=== PATIENT | female | born 1985 | race Two or more races ===

== ENCOUNTER 2017-08-25 10:05 | Observation (INO) | payer MEDICAID | END 2017-08-25 12:10 | disposition home or self-care (01) | DRG 566 | LOC: LDRP 10:05 | PROVIDERS: ADMIT Specialist; ATTEND Specialist | DX: O48.0 Post-term pregnancy (principal); Z3A.40 40 weeks gestation of pregnancy | CPT/HCPCS: 59025; 76818; 81002; G0378 ==

== ENCOUNTER 2017-08-27 10:06 | Observation (INO) | payer MEDICAID ==
[~2017-08-27] VITALS: Ht 154.9 cm; Wt 83.9 kg
[2017-08-27] MEDS ORDERED: PREN-96 PO (10:32)
== END 2017-08-27 11:30 | disposition home or self-care (01) | DRG 566 ==
LOC: LDRP 10:06
PROVIDERS: ADMIT Specialist; ATTEND Specialist
DX: O26.893 Other specified pregnancy related conditions, third trimester (principal); O48.0 Post-term pregnancy; R10.9 Unspecified abdominal pain; Z3A.40 40 weeks gestation of pregnancy
CPT/HCPCS: 59025; 76818; 81002; G0378

== ENCOUNTER 2017-08-29 20:20 | Inpatient (IN) | payer MEDICAID ==
[~2017-08-29 20:20] MED LIST: PREN-96 PO
[2017-08-29] MEDS: LACTATED RINGER'S 1,000 ML IV SCH (21:36)
[2017-08-29] MEDS ORDERED: PHISODERM TOP SOLN 240ML BTL TOP PRN (21:45)
[2017-08-29] MEDS ORDERED: DERMOPLAST 60ML BOTTLE TOP PRN (21:45)
[2017-08-29] MEDS ORDERED: METHYLERGONOVINE MALEATE 0.2 MG/ML AMP IM PRN (21:45)
[2017-08-29] MEDS ORDERED: LIDOCAINE 2% (LOCAL ANESTH.) PF 5ml SDV ID ONE (21:45)
[2017-08-29] MEDS ORDERED: WITCH HAZEL-GLYCERIN PAD TOP PRN (21:45)
[2017-08-29 22:06] LABS: Urine Bacteria NONE SEEN /hpf (None Seen); Urine Blood Negative /uL (Negative); Urine Mucus FEW (None Seen); Urine Specific Gravity 1.017 (1.001-1.035); Urine WBC 1 /hpf (0 - 5)
[2017-08-29 22:35] LABS: Basophils # (auto) 0 uL; Basophils % (auto) 0.4 % (0.0-2.0); Eosinophils # (auto) 0.1 uL; Eosinophils % (auto) 0.7 % (0.0-7.0); Hematocrit 35.6 % (36.0-46.0); Hemoglobin 11.7 g/dL (12.2-16.2); Lymphocytes # (auto) 1.6 uL; Lymphocytes % (auto) 20.7 % (10.0-50.0); Mean Corpuscular Hemoglobin 28.7 pg (28.0-32.0); Mean Corpuscular Hgb Conc. 32.9 g/dL (32.0-36.0); Mean Corpuscular Volume 87.2 fL (80.0-100.0); Monocytes # (auto) 0.8 uL; Monocytes % (auto) 9.8 % (0.0-12.0); Neutrophils # (auto) 5.4 uL; Neutrophils % (auto) 68.4 % (37.0-80.0); Platelet Count (auto) 220 10^3/uL (140-450); Red Blood Cells 4.09 10^6/uL (4.0-5.20); White Blood Cell 7.8 10^3/uL (4.4-10.8)
[2017-08-29 22:51] LABS: Albumin 2.5 g/dL (3.4-5.0); Calcium 8.9 mg/dL (8.5-10.1); Potassium 4.1 mmol/L (3.5-5.1)
[2017-08-29 22:53] LABS: BUN/Creatinine Ratio 17.4
[2017-08-29 22:56] LABS: Bilirubin, Total 0.1 mg/dL (0.2-1.0); Total Protein 6.6 g/dL (6.4-8.2)
[2017-08-29 23:21] LABS: INR 0.87 (0.9-1.15); Partial Thromboplastin Time 27.3 sec (23.78-33.04); Prothrombin Time 9.4 sec (9.27-12.13)
[2017-08-30] MEDS ORDERED: LACT. RINGERS/OXYTOCIN 20UNITS 1,000 ML IV SCH (09:01)
[2017-08-30] MEDS ORDERED: LACT. RINGERS/OXYTOCIN 20UNITS 1,000 ML IV ONE (09:03)
[2017-08-30] MEDS ORDERED: TERBUTALINE SULFATE 1 MG/ML 1ML VIAL SC ONE (09:15)
[2017-08-30] MEDS: LACTATED RINGER'S 1,000 ML IV SCH ×2 (12:10→13:45)
[2017-08-30] MEDS ORDERED: ACETAMINOPHEN 325 MG TAB PO PRN (13:45)
[2017-08-30] MEDS: IBUPROFEN 600 MG TAB PO PRN (14:10)
[2017-08-30 16:00] VITALS: BP 127/69
[2017-08-30 19:00] VITALS: BP 127/73
[2017-08-30 23:00] VITALS: BP 116/70
[2017-08-31 02:30] VITALS: BP 125/79
[2017-08-31] MEDS: IBUPROFEN 600 MG TAB PO PRN (03:14)
[2017-08-31 07:00] VITALS: BP 112/64
[2017-08-31 11:00] VITALS: BP 119/81
[2017-08-31 15:00] VITALS: BP 127/80
[2017-08-31 15:15] VITALS: BP 127/80
[2017-09-01 11:26] LABS: RPR Non Reactive (Non Reactive)
== END 2017-08-31 15:15 | disposition home or self-care (01) | DRG 560 ==
LOC: LDRP 20:20
PROVIDERS: ADMIT Obstetrics & Gynecology; ATTEND Obstetrics & Gynecology
PROC: 10E0XZZ Delivery of Products of Conception, External Approach (ICD-10-PCS; principal; 2017-08-30)
DX: O48.0 Post-term pregnancy (principal); O69.81X0 Labor and delivery complicated by cord around neck, without compression, not applicable or unspecified; Z37.0 Single live birth; Z3A.40 40 weeks gestation of pregnancy
CPT/HCPCS: 36415; 59025; 59409; 80053; 81001; 85025; 85610; 85730; 86592; 86850; 86900; 86901; 96365; 96366; J2590

== ENCOUNTER 2020-09-23 18:08 | Observation (INO) | payer MEDICAID ==
[~2020-09-23] VITALS: Ht 154.9 cm; Wt 79.8 kg
[2020-09-24] MEDS ORDERED: TERBUTALINE SULFATE 1 MG/ML 1ML VIAL SC SCH (06:15)
[2020-10-26] MEDS ORDERED: DOCU-94 PO (11:00)
[2020-10-26] MEDS ORDERED: IBUP600T27 PO (11:00)
[2020-10-26] MEDS ORDERED: HYDR1TAB97 PO (11:00)
== END 2020-09-24 08:27 | disposition home or self-care (01) ==
LOC: LDRP 18:08 → NUR 21:07 → LDRP 22:29
PROVIDERS: ADMIT Obstetrics & Gynecology; ATTEND Obstetrics & Gynecology
DX: O26.893 Other specified pregnancy related conditions, third trimester (principal); R10.9 Unspecified abdominal pain; V49.9XXA Car occupant (driver) (passenger) injured in unspecified traffic accident, initial encounter; Y93.89 Activity, other specified; Y92.410 Unspecified street and highway as the place of occurrence of the external cause; Z3A.35 35 weeks gestation of pregnancy
CPT/HCPCS: 59025; 76815; 76818; 81002; 94760; 96372; G0378; J3105

== ENCOUNTER 2020-10-23 11:39 | Outpatient (CLI) | payer MEDICAID ==
[2020-10-23 13:18] LABS: Basophils # (auto) 0 10 ^3/uL (0-0.2); Basophils % (auto) 0.4 % (0.0-2.0); Eosinophils # (auto) 0.1 10 ^3/uL (0-0.8); Eosinophils % (auto) 0.8 % (0.0-7.0); Hemoglobin 11.7 g/dL (12.2-16.2); Lymphocytes # (auto) 1.4 10 ^3/uL (0.4-5.4); Lymphocytes % (auto) 17.9 % (10.0-50.0); Mean Corpuscular Hemoglobin 28.9 pg (28.0-32.0); Mean Corpuscular Hgb Conc. 33.3 g/dL (32.0-36.0); Mean Corpuscular Volume 86.8 fL (80.0-100.0); Monocytes # (auto) 0.7 10 ^3/uL (0-1.3); Monocytes % (auto) 8.9 % (0.0-12.0); Neutrophils # (auto) 5.8 10 ^3/uL (1.6-8.6); Nucleated Red Blood Cells % 0.1 %; Red Blood Cells 4.03 10^6/uL (4.0-5.20); Red Cell Distribution Width 14.5 % (11.8-14.3); White Blood Cell 8.1 10^3/uL (4.4-10.8)
[2020-10-23 13:21] LABS: Urine Bacteria FEW /hpf (None Seen); Urine Blood Negative /uL (Negative); Urine Specific Gravity 1.014 (1.001-1.035); Urine WBC 1 /hpf (0 - 5)
[2020-10-23 13:38] LABS: INR 0.94 (0.9-1.15); Partial Thromboplastin Time 25.6 sec (23.0-31.2)
[2020-10-23 13:43] LABS: Amphetamine Screen, Urine NEGATIVE (NEGATIVE); Barbiturate Scree,Urine NEGATIVE (NEGATIVE); Benzodiazephine Screen, Urine NEGATIVE (NEGATIVE); Cannabinoid Screen, Urine NEGATIVE (NEGATIVE); Cocaine Screen, Urine NEGATIVE (NEGATIVE); Opiate Scree,Urine NEGATIVE (NEGATIVE); Phencyclidine Screen, Urine NEGATIVE (NEGATIVE)
[2020-10-23 13:43] LABS: Albumin 2.7 g/dL (3.4-5.0); Calcium 8.7 mg/dL (8.5-10.1)
[2020-10-23 13:49] LABS: BUN/Creatinine Ratio 17.9; Bilirubin, Total 0.2 mg/dL (0.2-1.0); Total Protein 7.2 g/dL (6.4-8.2)
[2020-10-24 06:06] LABS: RPR Non Reactive (Non Reactive)
[2020-10-26] MEDS ORDERED: DOCU-94 PO (11:00)
[2020-10-26] MEDS ORDERED: HYDR1TAB97 PO (11:00)
[2020-10-26] MEDS ORDERED: IBUP600T27 PO (11:00)
== END 2020-10-23 12:50 | disposition home or self-care (01) ==
LOC: OB 11:39
PROVIDERS: ATTEND Specialist
DX: Z01.812 Encounter for preprocedural laboratory examination (principal); Z20.822 Contact with and (suspected) exposure to COVID-19
CPT/HCPCS: 36415; 80053; 80307; 81001; 85025; 85610; 85730; 86592; 86850; 86900; 86901; C9803; U0003